=== PATIENT | male | born 1980 | race Caucasian/White ===

== ENCOUNTER 2017-08-28 16:42 | Emergency (ER) | payer OTHER ==
[2017-08-28] MEDS ORDERED: Gentamicin Ophth Soln 0.3% 5 ml Bottle ONE ×2 (17:07→17:09)
[2017-08-28] MEDS ORDERED: Neosporin Ophth Soln 10 ml Bottle ONE (17:09)
[2017-08-28] MEDS ORDERED: Neomycin-Polymyxin-Hc 7.5 ML BOT ONE (17:09)
== END 2017-08-28 17:12 | disposition home or self-care (01) ==
LOC: BURERS 16:42
DX: H10.9 Unspecified conjunctivitis (principal); F31.9 Bipolar disorder, unspecified; F41.9 Anxiety disorder, unspecified; F17.210 Nicotine dependence, cigarettes, uncomplicated; I10 Essential (primary) hypertension
CPT/HCPCS: 99282